=== PATIENT | female | born 1965 | race Caucasian/White ===

== ENCOUNTER 2024-12-02 08:53 | Outpatient (CLI) | payer OTHER, SELFPAY ==
--- NOTE | ~2024-12-02 | MM_ITS ---
EXAMINATION: MM screening maximus BI w sumit HISTORY: Screening TECHNIQUE: Craniocaudal and mediolateral oblique 3-D tomosynthesis images were obtained and synthetic 2-D images were generated. CAD analysis was submitted and interpreted. COMPARISON: No prior mammogram is available for comparison at this institution. BREAST PARENCHYMAL COMPOSITION: Not dense: There are scattered areas of fibroglandular density. FINDINGS: There is no evidence of suspicious mass, calcification, or architectural distortion to sugg est malignancy in either breast. There has been no suspicious interval change. IMPRESSION: 1. No mammographic evidence of malignancy. 2. Recommend routine screening mammography in one year. BI-RADS Category 1: Negative Reviewed, dictated and finalized at location A.
--- OUTSIDE RECORDS SUMMARY | 2024-12-02 09:32 | XMS_ITS | CONTINUITY OF CARE DOCUMENT ---
Author Name vipul matthew Address Unknown Organization [facility] Address [id number] [place] [address] [address] [place] [address] Phone [phone] Care Team Providers Care Cabinetmaker Helper Name Role Phone vipul matthew Unavailable Unavailable
--- OUTSIDE RECORDS SUMMARY | 2024-12-02 09:32 | XMS_ITS | Clinical Summary ---
Author Organization [facility] Address [address] [place] [address] Care Team Providers Care Channel Installer Name Role Phone RonelSung Primary Care Provider Unavailabl e Source Comments [facility],non-owned Affiliates and Associated Physician Practices is amultiple site organization consisting of ambulatory clinics and hospital sitesin [place], [place], [place] and [place]. This disclosure is being madepursuant to the Care Everywhere program and may not contain all information available regarding this patient. Last updated 18.[facility] [employer] Allergies Active Allergy Reactions Criticality Noted Date Comments Penicillins 05/08/2016 Medications * Be aware that medications may not be up to date on this document. Alwaysverify current medications with the patient. simvastatin (ZOCOR) 20 MG tablet 04/15/2019 Active omeprazole (PRILOSEC) 40 MG capsule 04/15/2019 Active SYNTHROID 112 MCG tablet 04/15/2019 Active hydroCHLOROthiazid e (HYDRODIURIL) 25 MG tablet 04/15/2019 Active calcitriol (ROCALTROL) 0.25 MCG capsule 04/15/2019 Active Active Problems Problem Noted Date Diagnosed Date Hypertension 07/27/2009 Thyroid activity decreased 07/27/2009 Social History Tobacco Use Types Packs/Day Years Used Date Smoking Tobacco: Every Day Cigarettes Smokeless Tobacco: Never Comments No Sex and Gender Information Value Date Recorded Sex Assigned at Not on file Legal Sex Female 7:50 PM CDT Gender Identity Not on file Sexual Orientation Not on file Last Filed Vital Signs Vital Sign Reading Time Taken Comments Blood Pressure 118/78 02/11/2020 11:33 AM CDT Pulse 84 02/11/2020 11:33 AM CDT Temperature 36.5 C (97.7 F) 02/11/2020 11:33 AM CDT Respiratory Rate 17 02/11/2020 11:33 AM CDT Oxygen Saturation 97% 02/11/2020 11:33 AM CDT Inhaled Oxygen Concentration - - Weight 86.2 kg (190 lb) 02/11/2020 11:33 AM CDT Height 180.3 cm (5' 11 ) 02/11/2020 11:33 AM CDT Body Mass Index 26.5 02/11/2020 11:33 AM CDT Plan of Treatment Health Maintenance Due Date Last Done Comments COLOGUARD (AGES 45-75) - COL ON CA SCREENING 1965 COLON MONITORING 1965 COLONOSCOPY - COLON CA SCREENING 1965 CT COLONOGRAPHY - COLON CA SCREENING 1965 Colorectal Cancer Screening 1965 FIT - COLON CA SCREENING 1965 FLEX SIG - COLON CA SCREENING 1965 MAMMOGRAM 1965 HIV SCREENING 02/10/1980 HEPATITIS C SCREENING 02/05/1983 DTAP/TDAP/TD VACCINES (1 - Tdap) 02/10/1984 HEPATITIS B VACCINE (1 of 3 - 19+ 3-dose series) 02/10/1984 PNEUMOCOCCAL VACCINE 50+ (1 of 2 - PCV) 02/10/1984 ZOSTER VACCINE (1 of 2) 2015 SCREENING FOR DIABETES 09/18/2017 COVID-19 VACCINE ( - 2023-2 5 season) 2024 DEPRESSION SCREENING 08/12/2024 INFLUENZA VACCINE (Season Ended) 2025 HIB VACCINE Aged Out No longer eligi ble based on patient's age to complete this topic HPV VACCINE Aged Out No longer eligi ble based on patient's age to complete this topic MENINGOCOCCAL (Group B) VACC INE SHARED DECISION-MAKING Aged Out No longer eligibl e based on patient's age to complete this topic MENINGOCOCCAL GROUPS A/C/Y/W VACCINE Aged Out No longer eligible b ased on patient's age to complete this topic Insurance [address] [address] [place] [address] [facility]ALTH CARE [facility] Care Teams Channel Installer Relationship Specialty Start Date End Date Ronel, Sung Update Information PCP - General 11/27/17
== END 2024-12-02 08:54 | disposition home or self-care (01) ==
LOC: ANHIMG 08:55
PROVIDERS: PCP Nurse Practitioner; Visit Provider Nurse Practitioner Obstetrics & Gynecology
DX: Z12.31 Encounter for screening mammogram for malignant neoplasm of breast (principal)
CPT/HCPCS: 77063; 77067